=== PATIENT | male | born 1975 | race Hispanic/Latino ===

== ENCOUNTER 2021-01-29 14:41 | Emergency (ER) | payer SELFPAY ==
[~2021-01-29] VITALS: Ht 165.1 cm; Wt 102.1 kg
[2021-01-29] MEDS ORDERED: FAMOTIDINE 20MG VIAL IV ONE ×2 (15:00)
[2021-01-29] MEDS ORDERED: SOLU-MEDROL 125MG VIAL IVP ONE ×2 (15:00)
[2021-01-29] MEDS ORDERED: EPINEPHRINE PF 1MG AMP IM SCH (15:00)
[2021-01-29] MEDS ORDERED: EPINEPHRINE PF 1MG AMP IVP ONE (15:00)
[2021-01-29] MEDS ORDERED: DiphenhydrAMINE HCL 50 MG/ML VIAL IVP ONE (15:00)
[2021-01-29] MEDS ORDERED: DiphenhydrAMINE HCL 50 MG/ML VIAL IV ONE (15:00)
[2021-01-29 16:00] VITALS: BP 124/76
[2021-01-29] MEDS ORDERED: ONDANSETRON 4MG INJ IVP ONE (16:00)
[2021-01-29 17:00] VITALS: BP 122/76
[2021-01-29 18:00] VITALS: BP 126/72
[2021-01-29] MEDS ORDERED: EPIN0.3P2 IM (18:35)
[2021-01-29 19:41] VITALS: BP 126/74
== END 2021-01-29 19:47 | disposition home or self-care (01) ==
LOC: EDH 14:41
DX: T63.441A Toxic effect of venom of bees, accidental (unintentional), initial encounter (principal); T78.2XXA Anaphylactic shock, unspecified, initial encounter; Y92.89 Other specified places as the place of occurrence of the external cause; Z90.89 Acquired absence of other organs
CPT/HCPCS: 93005; 96372; 96374; 96375; 99285; J0171; J1200; J2405; J2930; J3490